=== PATIENT | male | born 1935 | race Caucasian/White ===

== ENCOUNTER → 2016-12-18 | Outpatient (CLI) | payer OTHER ==
[~2016-12-18] VITALS: Ht 162.6 cm; Wt 62.0 kg
[~2016-12-18] MED LIST: ACET-2247 PO; AMMO225L14 TP; ASPI-556 PO; ATEN50TA PO; CEPH500 PO; CLOT30CR23 TP
[2016-12-18 09:30] VITALS: BP 131/76
== END | disposition home or self-care (01) ==
LOC: HBOWC 09:15
PROVIDERS: ATTEND Emergency Medicine
DX: I87.2 Venous insufficiency (chronic) (peripheral) (principal); L97.811 Non-pressure chronic ulcer of other part of right lower leg limited to breakdown of skin; I89.0 Lymphedema, not elsewhere classified; B35.1 Tinea unguium; I10 Essential (primary) hypertension; L84 Corns and callosities
CPT/HCPCS: 97597

== ENCOUNTER → 2016-12-28 | Outpatient (CLI) | payer OTHER ==
[2016-12-28 10:47] VITALS: BP 131/73
== END | disposition home or self-care (01) ==
LOC: HBOWC 10:26
PROVIDERS: ATTEND Emergency Medicine
DX: I87.2 Venous insufficiency (chronic) (peripheral) (principal); L97.811 Non-pressure chronic ulcer of other part of right lower leg limited to breakdown of skin; I89.0 Lymphedema, not elsewhere classified; R21 Rash and other nonspecific skin eruption; B35.1 Tinea unguium; L84 Corns and callosities

== ENCOUNTER → 2017-01-07 | Outpatient (CLI) | payer OTHER ==
[~2017-01-07] MED LIST changes: +TRIAMCINOLONE 0.1% 15 GM CREAM TP ONE
[2017-01-07 10:46] VITALS: BP 124/72
== END | disposition home or self-care (01) ==
LOC: HBOWC 10:31
PROVIDERS: ATTEND Emergency Medicine
DX: L59.8 Other specified disorders of the skin and subcutaneous tissue related to radiation (principal); L98.491 Non-pressure chronic ulcer of skin of other sites limited to breakdown of skin; M27.2 Inflammatory conditions of jaws; M86.8X8 Other osteomyelitis, other site; I10 Essential (primary) hypertension; Z85.3 Personal history of malignant neoplasm of breast; W88.8XXD Exposure to other ionizing radiation, subsequent encounter
CPT/HCPCS: 97597

== ENCOUNTER → 2017-01-21 | Outpatient (CLI) | payer OTHER ==
[~2017-01-21] MED LIST changes: +CLOTRIMAZOLE 1% 15 GM CREAM TP ONE; -TRIAMCINOLONE 0.1% 15 GM CREAM TP ONE
[2017-01-21 13:54] VITALS: BP 137/73
== END | disposition home or self-care (01) ==
LOC: HBOWC 11:18
PROVIDERS: ATTEND Emergency Medicine
DX: I87.2 Venous insufficiency (chronic) (peripheral) (principal); L97.811 Non-pressure chronic ulcer of other part of right lower leg limited to breakdown of skin; I89.0 Lymphedema, not elsewhere classified; I10 Essential (primary) hypertension; M86.8X8 Other osteomyelitis, other site; L84 Corns and callosities; B35.1 Tinea unguium; Z85.3 Personal history of malignant neoplasm of breast

== ENCOUNTER 2017-01-28 13:04 | Emergency (ER) | payer OTHER ==
[~2017-01-28] VITALS: Ht 165.1 cm; Wt 65.9 kg
[~2017-01-28 13:04] MED LIST changes: -ACET-2247 PO; -CEPH500 PO; -CLOTRIMAZOLE 1% 15 GM CREAM TP ONE
[2017-01-28] MEDS ORDERED: ACET-2247 PO (14:53)
[2017-01-28] MEDS ORDERED: CefTRIAXone 1 GM/DEXTROSE 50 ML IV ONE ×2 (17:15→19:45)
[2017-01-28] MEDS ORDERED: ACETAMINOPHEN 325 MG TABLET PO ONE (17:15)
[2017-01-28 17:20] LABS: BASOPHILS # (AUTO) 0.03 K/uL (0.00-0.20); BASOPHILS % (AUTO) 0.8 % (0.0-2.0); EOSINOPHILS # (AUTO) 0.05 K/uL (0.00-0.70); EOSINOPHILS % (AUTO) 1.11 % (1.0-6.0); HEMOGLOBIN 12.2 g/dL (13.5-17.5); LYMPHOCYTES # (AUTO) 1.5 K/uL (1.0-4.8); LYMPHOCYTES % (AUTO) 33.4 % (22.0-44.0); MEAN CORPUSCULAR HEMOGLOBIN 29.9 pg (26.0-34.0); MEAN CORPUSCULAR HGB CONC 33.8 G/dL (31.0-37.0); MEAN CORPUSCULAR VOLUME 88 fL (80-100); MONOCYTES # (AUTO) 0.4 K/uL (0.1-1.0); MONOCYTES % (AUTO) 7.6 % (2.0-9.0); NEUTROPHILS # (AUTO) 2.6 K/uL (1.8-7.7); NEUTROPHILS % (AUTO) 57.1 % (40.0-70.0); PLATELET COUNT (AUTO) 153 K/uL (150-450); RED BLOOD CELL COUNT(AUTO) 4.07 MIL/uL (4.50-5.90); WHITE BLOOD COUNT (AUTO) 4.5 K/uL (4.5-11.0)
[2017-01-28 17:33] LABS: ANION GAP 8 mmol/L (8-16); CALCIUM, TOTAL 8.6 mg/dL (8.8-10.5); CARBON DIOXIDE 29 mmol/L (22-29); CHLORIDE 103 mmol/L (98-107); CREATININE 0.91 mg/dL (0.60-1.30); GLOMERULAR FILTR. RATE CALC > 60 mL/min (>60); SODIUM SERUM 140 mmol/L (136-145); UREA NITROGEN, BLOOD 14 mg/dL (7-18)
[2017-01-28 17:38] LABS: ALANINE AMINOTRANSFERASE 13 U/L (12-78); ALBUMIN 3.5 g/dL (3.4-5.0); ASPARTATE AMINOTRANSFERASE 17 U/L (15-37); BILIRUBIN,TOTAL 0.7 mg/dL (0.1-1.0); TOTAL PROTEIN, SERUM 7.2 g/dL (6.4-8.2)
[2017-01-28 17:46] LABS: INR 1.1 (0.9-1.1); PROTHROMBIN TIME 11.2 SEC (9.4-11.6)
[2017-01-28 20:10] VITALS: BP 148/72
== END 2017-01-28 20:32 | disposition home or self-care (01) ==
LOC: EMS 13:11
DX: L03.115 Cellulitis of right lower limb (principal); R60.0 Localized edema; I10 Essential (primary) hypertension; I25.10 Atherosclerotic heart disease of native coronary artery without angina pectoris
CPT/HCPCS: 36415; 80053; 85025; 85610; 85730; 93005; 93971; 96365; 99285; J0696

== ENCOUNTER → 2017-02-04 | Outpatient (CLI) | payer OTHER ==
[~2017-02-04] MED LIST changes: +ACET-2247 PO; -AMMO225L14 TP; -ATEN50TA PO; -CLOT30CR23 TP
[2017-02-04 14:08] VITALS: BP 136/81
== END | disposition home or self-care (01) ==
LOC: HBOWC 12:45
PROVIDERS: ATTEND Emergency Medicine
DX: L97.811 Non-pressure chronic ulcer of other part of right lower leg limited to breakdown of skin (principal); I89.0 Lymphedema, not elsewhere classified; I87.2 Venous insufficiency (chronic) (peripheral); L84 Corns and callosities; M79.671 Pain in right foot; I10 Essential (primary) hypertension; Z85.3 Personal history of malignant neoplasm of breast; B35.1 Tinea unguium; M27.2 Inflammatory conditions of jaws
CPT/HCPCS: 11055; 11720; 97597

== ENCOUNTER 2017-05-07 12:09 | Emergency (ER) | payer OTHER ==
[~2017-05-07] VITALS: Ht 165.1 cm; Wt 65.0 kg
[2017-05-07] MEDS ORDERED: TAMS0.4C32 PO (12:28)
[2017-05-07] MEDS ORDERED: CALC-789 PO (12:28)
[2017-05-07] MEDS ORDERED: LIDOCAINE HCL/PF 1% 2 ML VIAL IM ONE (15:30)
[2017-05-07] MEDS ORDERED: CefTRIAXone SODIUM 1 GM/VIAL IM ONE (15:30)
[2017-05-07 16:28] VITALS: BP 119/74
== END 2017-05-07 16:38 | disposition home or self-care (01) ==
LOC: EMS 12:11
DX: L03.115 Cellulitis of right lower limb (principal); M25.571 Pain in right ankle and joints of right foot; I25.10 Atherosclerotic heart disease of native coronary artery without angina pectoris; I10 Essential (primary) hypertension; Z79.82 Long term (current) use of aspirin
CPT/HCPCS: 73610; 73630; 93971; 96372; 99284; J0696; J3490; 99283